=== PATIENT | female | born 1955 | race Caucasian/White ===

== ENCOUNTER 2016-08-09 09:23 | Emergency (ER) | payer BC ==
[2016-08-09 10:02] VITALS: BP 126/77
--- NOTE | 2016-08-09 10:27 | UC ---
Abdominal Pain Female HPI - HPI Summary HPI Summary: 1. worsening abd pain left lower side---began as pain in the left lower back, also has intermittent chest pressure with ambulation---no urinary sx--appetite poor---fatigue - History of Current Complaint Hx Obtained From: Patient Hx Last Menstrual Period: n/a ?: No Onset/Duration: Gradual Onset, Lasting Weeks, Worse Since - this day Timing: Constant Severity Initially: Mild Severity Currently: Moderate Pain Intensity: 5 Pain Scale Used: 0-10 Numeric Location: Discrete At: LLQ, Epigastric Radiates: No Radiates to: Other Character: Aching, Cramping Aggravating Factor(s): Other: - activity Alleviating Factor(s): Spontaneous Resolution - rest Associated Signs and Symptoms: Positive: Chest Pain, Decreased Appetite. Negative: Diaphoresis, Fever, Cough, Urinary Symptoms <Agata Bañuelos - Last Filed: 08/09/16 10:21> <Drea Street - Last Filed: 08/09/16 10:33> - History of Current Complaint Chief Complaint: UCBackPain Stated Complaint: FLANK PAIN,NAUSEA Time Seen by Provider: 08/09/16 09:27 Allergies/Adverse Reactions: Allergies Allergy/AdvReac Type Severity Reaction Status Date / Time Erythromycin AdvReac Mild Nausea, Verified 08/09/16 09:40 Vomiting, Diarrhea Home Medications: Home Medications Amoxicillin/Clavulanate TAB* [Augmentin TAB 875*] 875 mg PO BID 08/09/16 [ History Confirmed 08/09/16] Ibuprofen TAB* [Advil TAB*] 400 - 600 mg PO Q6H PRN 08/09/16 [History Confirmed 08/09/16] Levothyroxine TAB* [Synthroid TAB*] 50 mcg PO DAILY 08/09/16 [History Confirmed 08/09/16] PMH/Surg Hx/FS Hx/Imm Hx Previously Healthy: No Endocrine History Of: Reports: Thyroid Disease - Surgical History Surgical History: Yes Surgery Procedure, Year, and Place: Partial Hysterectomy (has Uterus), ~2010, [place]; Cholecystectomy, "a long time ago", [place] - Family History Known Family History: Positive: None Family History: no reported cardio vascular issues in family lineage - Social History Occupation: Employed Full-time Lives: With Family Alcohol Use: None Substance Use Type: None Smoking Status (MU): Never Smoked Tobacco - Immunization History Most Recent Influenza Vaccination: January 2016 <Agata Bañuelos - Last Filed: 08/09/16 10:21> Review of Systems Constitutional: Fatigue Skin: Negative Eyes: Negative ENT: Negative Respiratory: Negative Cardiovascular: Chest Pain Gastrointestinal: Abdominal Pain Genitourinary: Negative Motor: Negative Neurovascular: Negative Musculoskeletal: Negative Neurological: Negative Psychological: Negative All Other Systems Reviewed And Are Negative: Yes <Agata Bañuelos Last Filed: 08/09/16 10:21> Physical Exam Triage Information Reviewed: Yes Appearance: Well-Appearing, No Pain Distress, Well-Nourished Vital Signs: Initial Vital Signs Temp 98 F 08/09/16 09:29 Pulse 80 08/09/16 09:29 Resp 08/09/16 09:29 BP 126/77 08/09/16 09:29 Pulse Ox 99 08/09/16 09:29 Vital Signs Reviewed: Yes Eye Exam: Normal Eyes: Positive: Conjunctiva Clear ENT Exam: Normal ENT: Positive: Normal ENT inspection, Hearing grossly normal, Pharynx normal, TMs normal. Negative: Nasal congestion, Nasal drainage, Tonsillar swelling, Tonsillar exudate, Trismus, Muffled/hoarse voice Dental Exam: Normal Neck exam: Normal Neck: Positive: Supple, Nontender, No Lymphadenopathy Respiratory Exam: Normal Respiratory: Positive: Chest non-tender, Lungs clear, Normal breath sounds, No respiratory distress, No accessory muscle use Cardiovascular Exam: Normal Cardiovascular: Positive: RRR, No Murmur, Pulses Normal, Brisk Capillary Refill Abdominal Exam: Other Abdomen Description: Positive: No Organomegaly, Soft. Negative: Nontender - dissuse discomfort, Bruit, CVA Tenderness (R), CVA Tenderness (L), Distended, Guarding, Hernia @, Hepatomegaly, McBurney's Point Tenderness, Peritoneal Signs , Pulsatile Mass, Splenomegaly Musculoskeletal Exam: Normal Musculoskeletal: Positive: Strength Intact, ROM Intact, No Edema Neurological Exam: Normal Neurological: Positive: Alert, Muscle Tone Normal Psychological Exam: Normal Psychological: Positive: Normal Response To Family Skin Exam: Normal <Agata Bañuelos Last Filed: 08/09/16 10:21> Vital Signs: Initial Vital Signs Temp 98 F 08/09/16 09:29 Pulse 80 08/09/16 09:29 Resp 16 08/09/16 09:29 BP 126/77 08/09/16 09:29 Pulse Ox 99 08/09/16 09:29 <[address] - Last Filed: 08/09/16 10:33> Abd Pain Female Course/Dx - Course Course Of Treatment: NPO, to [facility] (pt refuses ambulance) - Differential Dx/Diagnosis Differential Diagnosis: Diverticulitis, Irritable Bowel Syndrome, KS, Renal Colic, Urinary Tract Infection Provider Diagnoses: Chest and abdomen pain - Physician Notification/Consults Discussed Patient Care With: Raeann Hill Time Discussed With Above Provider: 10:20 Instructed by Provider To: Transfer <Agata Bañuelos - Last Filed: 08/09/16 10:21> Discharge <Agata Bañuelos - Last Filed: 08/09/16 10:21> <Drea Street - Last Filed: 08/09/16 10:33> - Discharge Plan Condition: Stable Disposition: AGAINST MEDICAL ADVICE Referrals: Abel Smith [Primary Care Provider] - Attestation Statement User Type: Provider - I was available for consult. This patient was seen by the DANIEL. The patient was not presented to, seen by, or examined by me. <Drea Street - Last Filed: 08/09/16 10:33>
== END 2016-08-09 10:22 | disposition left against medical advice (07) ==
LOC: UCCORT 09:23
DX: R10.32 Left lower quadrant pain (principal); R07.89 Other chest pain; R53.83 Other fatigue; E07.9 Disorder of thyroid, unspecified; Z90.711 Acquired absence of uterus with remaining cervical stump; Z90.49 Acquired absence of other specified parts of digestive tract; Z88.1 Allergy status to other antibiotic agents
CPT/HCPCS: 81003; 87086; 93005; 99202; G0463

== ENCOUNTER 2019-01-05 07:32 | Day surgery (SDC) | payer BC ==
[2019-01-05] MEDS ORDERED: Lidocaine 1% w EPI 1:200,000* SDV 30 ML VIAL ONE (07:42)
[2019-01-05] MEDS ORDERED: Sodium Bicarbonate 8.4% IV* 50 ML VIAL ONE (07:42)
[2019-01-05] MEDS ORDERED: Bupivacaine 0.5% SDV PF* 30ML VIAL ONE (08:41)
[2019-01-05 10:19] VITALS: BP 140/69
--- NOTE | 2019-01-05 17:12 | OP ---
DATE OF OPERATION: 01/05/19 [facility] DATE OF : 53 SURGEON: Haseeb Garcia MD. ROOFER GYPSUM: NICOLE Chin. ANESTHESIOLOGIST: None. ANESTHESIA: Local only with 1% buffered lidocaine with epinephrine. PRE-OP DIAGNOSES: 1. Right trigger thumb. 2. Right middle trigger finger. POST-OP DIAGNOSES: 1. Right trigger thumb. 2. Right middle trigger finger. OPERATIVE PROCEDURE: 1. Right trigger thumb release. 2. Right middle trigger finger release. INDICATIONS: Ms. Pascual has the trigger fingers. We talked about risks and benefits. She wanted to proceed with the procedure. ESTIMATED BLOOD LOSS: 5 mL. COMPLICATIONS: None. FINDINGS: See above and below. DESCRIPTION OF PROCEDURE: Ms. Pascual was seen in the preoperative holding area. The correct site, side, and procedure were identified. We had a time-out and I anesthetized the operative site. Short time later, we came back to the operating room where the arm was prepped and draped in the usual fashion. I first made a 1 cm incision using the distal palmar crease over the right middle finger A1 marek. Full-thickness flaps were raised off the tendon sheath. Ragnell retractors were placed. Tendon sheath was released through the entirety of the A1 marek, the A0 marek was released, the leading edge of the A2 marek was released. I had her flex and extend the finger multiple times. There was no triggering. The wound was irrigated out and closed with 4- 0 nylon suture. I then made a 1 cm transverse incision in the right thumb MCP joint flexion crease. Dissection was carried down. Full-thickness flaps were raised. Ragnell retractors were placed. The A1 marek was released with the 15-blade and a tenotomy scissors. Once I had completed the release proximally and distally, I had to flex the thumb down multiple times. There was no triggering. Everything was looking good. The wounds were irrigated out. Skin was closed with 4-0 nylon suture. Soft dressings were applied and she was taken to the recovery room in stable condition. [id number]/[facility] #: [id number]
== END 2019-01-05 09:55 | disposition home or self-care (01) ==
LOC: OREAST 07:32
PROVIDERS: ATTEND Orthopaedic Surgery Hand Surgery
DX: M65.331 Trigger finger, right middle finger (principal); M65.311 Trigger thumb, right thumb; E03.9 Hypothyroidism, unspecified
CPT/HCPCS: J2001; J3490

== ENCOUNTER 2019-05-21 12:47 | Emergency (ER) | payer BC ==
--- NOTE | 2019-05-21 14:50 | UC ---
Throat Pain/Nasal Clive HPI - HPI Summary HPI Summary: 2 days of headache and sinus pressure. has not taken ibuprofen today. using mucines-d w/ no relief. - History of Current Complaint Chief Complaint: UCRespiratory Stated Complaint: POSSIBLE SINUS INFECTION Time Seen by Provider: 05/21/19 14:41 Hx Obtained From: Patient Hx Last Menstrual Period: n/a Pain Scale Used: 0-10 Numeric Cough: None - Allergies/Home Medications Allergies/Adverse Reactions: Allergies Allergy/AdvReac Type Severity Reaction Status Date / Time erythromycin base Allergy Nausea And Verified 05/21/19 15:02 Vomiting, diarrhea PMH/Surg Hx/FS Hx/Imm Hx Previously Healthy: Yes Endocrine History: Thyroid Disease - Surgical History Surgical History: Yes Surgery Procedure, Year, and Place: Partial Hysterectomy (has Uterus), ~2010, [place]; Cholecystectomy, "a long time ago", [place] - Family History Known Family History: Positive: None Family History: no reported cardio vascular issues in family lineage - Social History Alcohol Use: None Substance Use Type: None Smoking Status (MU): Never Smoked Tobacco - Immunization History Most Recent Influenza Vaccination: January 2016 Review of Systems All Other Systems Reviewed And Are Negative: Yes Constitutional: Negative: Fever, Chills, Fatigue ENT: Positive: Sinus Congestion, Sinus Pain/Tenderness. Negative: Dental Pain, Sore Throat Respiratory: Negative: Cough Neurological: Positive: Headache Physical Exam Triage Information Reviewed: Yes Appearance: Well-Appearing Vital Signs Reviewed: Yes Eyes: Positive: Conjunctiva Clear ENT: Positive: Pharynx normal, Nasal congestion, TMs normal, Uvula midline. Negative: Sinus tenderness Neck: Positive: Supple Respiratory Exam: Normal Cardiovascular Exam: Normal Neurological: Positive: Alert Skin: Negative: Rashes Throat Pain/Nasal Course/Dx - Course Course Of Treatment: sinus pressure and headache x2 days in a healthy woman w/ normal vitals; afebrile. Exam unremarkable. likely viral etiology. pt wanted antibx and we discussed risks including GI issues, allergies, and ineffectiveness. she still wants med sent so obliged. - Differential Dx/Diagnosis Differential Diagnosis/HQI/PQRI: Sinusitis, URI, Other Provider Diagnosis: Acute viral sinusitis Discharge ED - Sign-Out/Discharge Documenting (check all that apply): Patient Departure All imaging exams completed and their final reports reviewed: No Studies - Discharge Plan Condition: Good Disposition: HOME Prescriptions: Amoxicillin/Clavulanate TAB* [Augmentin TAB 500 mg*] 500 mg PO BID 5 Days #10 tab Patient Education Materials: Sinusitis (ED) Referrals: Karli Street MD [Primary Care Provider] - Additional Instructions: I do not recommend antibiotics as I do think this is viral. After discussing the risk of taking antibiotics including ineffectiveness, you' ve chosen to take antibiotics and I have sent this to the pharmacy today. - Billing Disposition and Condition Condition: GOOD Disposition: Home - Attestation Statements Provider Attestation: I was available for consult. This patient was seen by the DANIEL. The patient was not presented to , seen by or examined by nv -Lori Hanks MD
[2019-05-21 15:01] VITALS: BP 124/64
== END 2019-05-21 15:18 | disposition home or self-care (01) ==
LOC: UCCORT 12:47
DX: J01.90 Acute sinusitis, unspecified (principal); B97.89 Other viral agents as the cause of diseases classified elsewhere
CPT/HCPCS: 99212; G0463